=== PATIENT | female | born 1990 | race Caucasian/White ===

== ENCOUNTER → 2018-12-01 15:48 | Outpatient (CLI) | payer OTHER, SELFPAY ==
--- NOTE | 2018-12-01 | DI.MRI.S_ITS ---
PROCEDURE: MR FOOT LT WO/W CON INDICATIONS: Left foot mass TECHNIQUE: Noncontrast coronal T1 spin echo and STIR, sagittal T1 spin echo with fat saturation and STIR, axial T1 spin echo and T2 fast spin echo with fat saturation. After the administration of contrast, axial/sagittal/coronal T1 spin echo with fat saturation through the left foot. COMPARISON: None. FINDINGS: Image quality: Excellent. Bones: The visualized bone marrow demonstrates normal signal on all sequences. The overlying cortex appears intact. No abnormal intraosseous enhancement. Soft tissues: Nonenhancing cystic lesion measuring 7 x 3 mm on short axis image 35 series 8. This is seen adjacent to the fifth TMT joint No solid or enhancing mass identified. Visualized flexor and extensor tendons grossly unremarkable. Additional subcentimeter potential ganglion or synovial cyst seen adjacent to the dorsal talonavicular joint on the medial aspect. IMPRESSION: Subcentimeter ganglion or synovial cyst adjacent to the fifth TMT joint. This corresponds to the area marked by the fiducial place of the skin surface. Dictated by: Daniel Corley M.D. on 12/02/2018 at 9:01 Approved by: Daniel Corley M.D. on 12/02/2018 at 9:26
== END ==
PROVIDERS: PCP General Practice; Visit Provider General Practice
DX: R22.42 Localized swelling, mass and lump, left lower limb (principal)
CPT/HCPCS: 73720; A9579